=== PATIENT | female | born 1970 | race Hispanic/Latino ===

== ENCOUNTER 2019-04-18 15:54 | Emergency (ER) | payer SELFPAY ==
[~2019-04-18] VITALS: Ht 165.1 cm; Wt 63.5 kg
[2019-04-18] MEDS ORDERED: CLONIDINE HCL 0.1 MG TAB ONE ×2 (16:30→17:52)
[2019-04-18] MEDS: CLONIDINE HCL 0.1 MG TAB PO ONE ×2 (16:35→17:50)
[2019-04-18] MEDS ORDERED: PROMETHAZINE HCL (IM) 25 MG/ML VIAL IM ONE (16:45)
== END 2019-04-18 18:24 | disposition home or self-care (01) ==
LOC: FSED 15:54
DX: I10 Essential (primary) hypertension (principal); I63.9 Cerebral infarction, unspecified
CPT/HCPCS: 99283; J2550